=== PATIENT | female | born 1945 | race Caucasian/White ===

== ENCOUNTER 2016-03-26 10:18 | Outpatient (CLI) | payer OTHER ==
[2015-12-04 23:05] VITALS: BMI 43.8
--- NOTE | 2016-03-26 13:25 | US ---
EXAM: Bilateral lower extremity venous Doppler HISTORY: Bilateral leg pain TECHNIQUE: Real time duplex ultrasound is performed on the common femoral, greater saphenous, profu nda femoris, superficial femoral, popliteal, peroneal, anterior tibial, and posterior tibial veins. COMPARISON: None FINDINGS: The veins are free of intraluminal filling defects. The veins are compressible and show increased flow with augmentation. Normal variability with respiration is noted. Of note, the poste rior and anterior tibial veins are not visualized which may be due to the patient's body habitus. A right Villeda's cyst is detected measuring 4.1 x 1.3 x 1.8 cm. No left Villeda's cyst is appreciated. IMPRESSION: No evidence of deep or superficial vein thrombosis. Note, posterior and anterior tibial veins are not visualized which is thought to be related to the p atient's body habitus. Right Villeda's cyst.
== END 2016-03-26 10:19 | disposition home or self-care (01) ==
LOC: RAD 10:18
PROVIDERS: ATTEND Emergency Medicine
DX: M79.605 Pain in left leg (principal); M79.604 Pain in right leg; I35.0 Nonrheumatic aortic (valve) stenosis

== ENCOUNTER 2016-03-30 06:25 | Outpatient (CLI) ==
[2015-12-04 23:05] VITALS: BMI 43.8
[2016-03-30] MEDS ORDERED: DOBUTAMINE 250 ML IV ONE (07:00)
[2016-03-30] MEDS ORDERED: ATROPINE SULFATE PFS ONE (07:00)
--- NOTE | 2016-04-01 09:15 | DOBSTECHO ---
Ordering Physician: ALYSSA KHANNA Date of Test: 03/30/16 Reason for Examination: SURGICAL CLEARANCE, AORTIC STENOSIS Cardiac History: PACEMAKER/DEFIB Height: 60" Weight: 236 LBS Height: 60" Weight: 236 LBS Target Heart Rate: 126/149 ST Segment Stage Time HR BPM BP mmhg Rhythm +/- Up Down Comments/Symptoms Control Sitting HR 96/66 SR X NONE Dobutamine 250mg/D5W 5cmg/KG/mn 10cmg/KG/mn 3" 68 102/60 SR X NONE 15cmg/KG/mn 2" 68 X NONE 20cmg/KG/mn 2" 73 X NONE 25cmg/KG/mn 2" 73 96/56 X NONE 30cmg/KG/mn 2" 80 98/58 X .25 ATROPINE 35cmg/KG/mn 2" 90 X NONE 40cmg/KG/mn :23 91 Time: 3 HR B/P Time: 6 HR B/P Time: 8 HR B/P Recovery 83 96/70 Recovery 77 Recovery 72 Total Time: 13:23 Maximum Heart Rate Reached: 91 Interpretation: 1. DOBUTAMINE STRESS POSITIVE FOR ISCHEMIC ST-T WAVE CHANGES (BORDERLINE) 2. NO CHEST PAIN OR CHEST DISCOMFORT 3. LEFT VENTRICULAR CONTRACTILITY--NORMAL RESTING AND WITH DOBUTAMINE INFUSION MTDD
--- NOTE | 2016-04-01 09:30 | ECHOSTRESS ---
Date of Exam: 03/30/16 Ordering Physician: ALYSSA KHANNA Reason for Echo: AORTIC STENOSIS, SURGICAL CLEARANCE, DOBUTAMINE STRESS-- POSITIVE FOR ISCHEMIA M-Mode Normal Adult Results LV Dimensions Normal Adult Results AoV Opening excursions >1.6 LVEDD-base- 3.5-5.8 Ao root dimensions 2.0-3.7 LVESD-base- 3.1-4.6 L. Atrium dimensions 1.9-3.8 Post. Wall thickness 0.8-1.1 IV septum (thickness) 0.7-1.2 Post. Wall excursion 0.72-1.3 Septal motion Systolic motion R. Ventricular cavity 1.5-2.0 LVEF 60% Paradoxical septal wall motion 2-D: NORMAL LEFT VENTRICULAR CONTRACTILITY--RESTING AND WITH DOBUTAMINE INFUSION M-MODE: MV: AV: TV: PV: CHAMBER SIZE: WALL MOTION: NORMAL LEFT VENTRICULAR CONTRACTILITY--RESTING AND WITH DOBUTAMINE INFUSION PERICARDIUM: INTERPRETATION: 1. NORMAL LEFT VENTRICULAR CONTRACTILITY--RESTING AND WITH DOBUTAMINE INFUSION MTDD
--- NOTE | 2016-04-01 11:11 | ECHO2D ---
Date of Exam: 03/30/16 Ordering Physician: ALYSSA CHEN Reason for Echo: AORTIC STENOSIS, SURGICAL CLEARANCE Auscultation: S1, S2 Murmurs: MURMUR M-Mode Normal Adult Results LV Dimensions Normal Adult Results AoV Opening excursions >1.6 1.1 LVEDD-base- 3.5-5.8 5.1 Ao root dimensions 2.0-3.7 3.3 LVESD-base- 3.1-4.6 L. Atrium dimensions 1.9-3.8 4.7 Post. Wall thickness 0.8-1.1 1.1 IV septum (thickness) 0.7-1.2 1.2 Post. Wall excursion 0.72-1.3 NORMAL Septal motion NORMAL Systolic motion R. Ventricular cavity 1.5-2.0 3.0 LVEF 60% 50% Paradoxical septal wall motion NORMAL 2-D : CALCIFIC AORTIC STENOSIS--NORMAL LEFT VENTRICULAR CONTRACTILITY--ENLARGED RIGHT VENTRICLE AND LEFT ATRIAL CAVITIES, NO EFFUSION, NO THROMBUS M-MODE: MV: CALCIFIC ANNULUS AV: CALCIFIC AORTIC STENOSIS--1.0CM2 PLANIMETRY TV: NORMAL PV: NORMAL CHAMBER SIZE: ENLARGED LEFT ATRIAL AND RIGHT VENTRICLE CAVITIES WALL MOTION: NORMAL PERICARDIUM: NORMAL INTERPRETATION: 1. LEFT VENTRICULAR HYPERTROPHY BORDERLINE WITH ENLARGED LEFT ATRIAL CAVITY 2. ENLARGED RIGHT VENTRICLE CAVITY 3. NORMAL LEFT VENTRICLE CONTRACTILITY 4. CALCIFIC AORTIC STENOSIS 1.0 CM2 PLANIMETRY RECOMMEND: COMPLETE ECHO WITH COLOR FLOW DOPPLER MTDD
== END 2016-03-30 06:26 | disposition home or self-care (01) ==
LOC: CAR 06:25
PROVIDERS: ATTEND Emergency Medicine
DX: Z01.810 Encounter for preprocedural cardiovascular examination (principal); I35.0 Nonrheumatic aortic (valve) stenosis; I10 Essential (primary) hypertension; E11.9 Type 2 diabetes mellitus without complications

== ENCOUNTER 2016-04-23 14:47 | Emergency (ER) ==
[2016-04-23 14:53] VITALS: BP 114/66; TEMP 98.8; BMI 45.8
[2016-04-23] MEDS ORDERED: LIDOCAINE 1 % AMP 5 ML (SUTURES) SUBCUT STA (15:05)
--- NOTE | 2016-04-23 15:44 | ED.PDOC ---
General ED Provider: Dr. JEANIE OSEI Chief Complaint: Fall Stated Complaint: fall left knee injury Time Seen by Physician: 15:00 Mode of Arrival: Walk-In Information Source: Patient Exam Limitations: No limitations Primary Care Provider: ALYSSA KHANNA Nursing and Triage Documentation Reviewed and Agree: Yes Trauma/Injury Complaint Exam - Trauma Complaint/Exam Location of Pain or Injury: Reports: LLE (knee fell over a cat see photos before and after) Symptoms Are: Still present Initial Severity: Moderate Current Severity: Moderate Character: Reports: Aching Aggravating: Reports: None Associated Signs and Symptoms: Denies: LOC, Confusion, Memory loss, Lethargy, Vomiting, Bleeding, Bruising, Swelling, Extremity disuse, Painful respiration, Hoarseness, Dysphagia, Hemoptysis, Significant blood loss Related History: Reports: Similar episode Nexus Low Risk Criteria: No post-midline CS tender, No evidence of intoxicat., No Altered LOC, No focal neuro deficit, No distracting injuries Glascow Coma Scale (see protocol): 15 Review of Systems - Review Of Systems Constitutional: Reports: No symptoms Eyes: Reports: No symptoms Ears, Nose, Mouth, Throat: Reports: No symptoms Respiratory: Reports: No symptoms Cardiac: Reports: No symptoms GI: Reports: No symptoms : Reports: No symptoms Musculoskeletal: Reports: Joint pain (left knee pain) Skin: Reports: No symptoms Neurological: Reports: No symptoms Endocrine: Reports: No symptoms Hematologic/Lymphatic: Reports: No symptoms All Other Systems: Reviewed and Negative Past Medical History - Past Medical History Endocrine: Reports: DM 2 Cardiovascular: Reports: CAD, Hypertension Respiratory: Reports: None Hematological: Reports: None Gastrointestinal: Reports: None Genitourinary: Reports: None Neuro/Psych: Reports: None Musculoskeletal: Reports: None Cancer: Reports: None Last Menstrual Period: NA - Surgical History General Surgical History: Reports: Pacemaker (defib) - Family History Family History: Reports: None - Social History Smoking Status: Former smoker Hx Substance Use: No Alcohol Screening: None - Immunizations Tetanus Shot up to Date: No Physical Exam - Physical Exam Appearance: Well-appearing, No pain distress, Well-nourished Eyes: KALIA, EOMI, Conjunctiva clear ENT: Ears normal, Nose normal, Oropharynx normal Respiratory: Airway patent, Breath sounds clear, Breath sounds equal, Respirations nonlabored Cardiovascular: RRR, Pulses normal, No rub, No murmur GI/: Soft, Nontender, No masses, Bowel sounds normal, No Organomegaly Musculoskeletal: Limited ROM (left knee 2 cm laceration with glass FL/B ) Skin: Warm, Dry, Normal color Neurological: Sensation intact, Motor intact, Reflexes intact, Cranial nerves intact, Alert, Oriented Psychiatric: Affect appropriate, Mood appropriate Procedures - Laceration/Wound Repair No standard instances Wound Description: Stellate Wound Length (cm): 3CM Wound Width: 1CM Wound Depth: 0.4CM Wound Explored: Contaminated (WITH GLASS) Wound Irrigated: No Wound Prep: Saline Anesthesia: Lidocaine Wound Debrided: Minimal Undermining: Minimal Wound Margins: Revised Wound Repaired With: [place] Number of Oma: 17 Layer Closure?: No Critical Care Note - Critical Care Note Total Time (mins): 0 Course - Course Orders, Labs, Meds: Orders Category Date Time Status Lidocaine HCl/Pf [Lidocaine 1 % Amp 5 ml (Sutures)] MEDS 04/23/16 15:05 Discontinued 5 ml SUBCUT ONCE STA Medications Discontinued Medications Generic Name Dose Route Start Last Admin Trade Name Heri PRN Reason Stop Dose Admin Lidocaine HCl 5 ml 04/23/16 15:05 04/23/16 15:12 Lidocaine 1 % Amp 5 Ml (Sutures) SUBCUT 04/23/16 15:06 5 ml ONCE STA Administration Vital Signs: Temp Pulse Resp BP Pulse Ox 04/23/16 14:49 98.8 F 76 20 114/66 95 Departure - Departure Time of Disposition: 15:46 Disposition: HOME SELF-CARE Discharge Problem: Laceration Instructions: Laceration (ED), Staple Care (ED) Condition: Good Pt referred to PMD for follow-up: No Additional Instructions: Please call your Family Physician as soon as possible to schedule a follow-up appointment. Allergies/Adverse Reactions: Allergies aspirin Adverse Reaction (Verified 04/23/16 14:48) uncoated aspirin donaldson stomach prednisone Adverse Reaction (Verified 04/23/16 14:48) Chest Tightness zolpidem tartrate [From Ambien] Adverse Reaction (Verified 04/23/16 14:48) Home Medications: Ambulatory Orders Amitriptyline HCl 50 mg PO BEDTIME 08/11/14 Darifenacin Hydrobromide [Enablex] 15 mg PO DAILY 08/11/14 Rosuvastatin Calcium [Crestor] 20 mg PO BEDTIME 08/11/14 Spironolactone 12.5 mg PO DAILY 08/11/14 Budesonide/Formoterol Fumarate [Symbicort 160-4.5 Mcg Inhaler] 2 puff IH BID Lisinopril [Zestril] 2.5 mg PO DAILY 10/22/15 Oxycodone-Acetaminophe 7.5-325 [Percocet 7.5-325] 1 tab PO TID PRN 10/22/15 Tizanidine HCl 2 mg PO BID 10/22/15 Amiodarone HCl 150 mg PO DAILY #30 tablet 10/24/15 Furosemide [Lasix Tab] 20 mg PO QDAC #1 tablet 10/24/15
--- NOTE | 2016-04-23 16:16 | DI ---
EXAM: Left knee four views HISTORY: Injury COMPARISON: 12/04/2015 TECHNIQUE: Four views left knee were performed FINDINGS: There are skin lemuel. No fracture or dislocation. There are tricompartmental osteophyte s. There is moderate to severe narrowing medial compartment. There is mild narrowing patellofemora l compartment. There are several well marginated ossification about the posterior in the likely loo se body formation. There is atherosclerotic vascular calcification. IMPRESSION: 1. No fracture or dislocation. 2. 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 Loose body formation.
== END 2016-04-23 16:47 | disposition home or self-care (01) ==
LOC: ED 14:47
DX: S81.022A Laceration with foreign body, left knee, initial encounter (principal); M25.562 Pain in left knee; W01.0XXA Fall on same level from slipping, tripping and stumbling without subsequent striking against object, initial encounter
CPT/HCPCS: 99283

== ENCOUNTER 2016-05-12 17:29 | Emergency (ER) ==
[2016-05-12 17:41] VITALS: BP 113/64; TEMP 97.1; BMI 46.6
--- NOTE | 2016-05-12 17:42 | ED.PDOC ---
General ED Provider: Dr. TARA HOLLOWAY JR Chief Complaint: Wound Check Stated Complaint: 15 lemuel to laceration left knee note central to stellate lesion small amount of exudate, erythema at margins Time Seen by Physician: 17:42 Mode of Arrival: Wheelchair Information Source: Patient Exam Limitations: No limitations Primary Care Provider: ALYSSA KHANNA Nursing and Triage Documentation Reviewed and Agree: No Review of Systems - Review Of Systems Constitutional: Reports: No symptoms Eyes: Reports: No symptoms Ears, Nose, Mouth, Throat: Reports: No symptoms Respiratory: Reports: No symptoms Cardiac: Reports: No symptoms GI: Reports: No symptoms : Reports: No symptoms Musculoskeletal: Reports: No symptoms Skin: Reports: Change in color, Lesions Neurological: Reports: No symptoms Endocrine: Reports: No symptoms Hematologic/Lymphatic: Reports: No symptoms All Other Systems: Other Past Medical History - Past Medical History Endocrine: Reports: DM 2 Cardiovascular: Reports: CAD, Hypertension Respiratory: Reports: None Hematological: Reports: None Gastrointestinal: Reports: None Genitourinary: Reports: None Neuro/Psych: Reports: None Musculoskeletal: Reports: None Cancer: Reports: None Last Menstrual Period: unknown - Surgical History General Surgical History: Reports: Pacemaker (defib) - Family History Family History: Reports: None - Social History Smoking Status: Former smoker Hx Substance Use: No Alcohol Screening: None - Immunizations Tetanus Shot up to Date: (unknown) Physical Exam - Physical Exam Appearance: Well-appearing, Obese Pain Distress: Mild Neck: Supple Respiratory: Airway patent Skin: Warm, Dry, Normal color (note lesion) Procedures - Foreign Body Removal Location of Foreign Object: left knee lemuel Foreign Object: removed lemuel times 15 after removal, all areas clean and dry with erythe Depth of Object: superficial- appearance of healing wounds Type of Anesthesia: None Prep: Hibiclens Irrigation: Yes Skin Incised: No Instruments Used: Yes: Other (staple remover) Critical Care Note - Critical Care Note Total Time (mins): 0 Course - Course Orders, Labs, Meds: Orders Category Date Time Status CULTURE WOUND [WOUND CULTURE] Stat LAB 05/12/16 17:50 Received Vital Signs: Temp Pulse Resp BP Pulse Ox 05/12/16 17:31 97.1 F L 76 20 113/64 95 Departure - Departure Time of Disposition: 18:13 Disposition: HOME SELF-CARE Discharge Problem: Wound Instructions: Laceration (ED) Condition: Good Pt referred to PMD for follow-up: Yes Additional Instructions: may place clean bandage daily cleanse with antibacterial soap if any drainage if increased drainage recheck PMD Allergies/Adverse Reactions: Allergies aspirin Adverse Reaction (Verified 05/12/16 17:41) uncoated aspirin donaldson stomach prednisone Adverse Reaction (Verified 05/12/16 17:41) Chest Tightness zolpidem tartrate [From Ambien] Adverse Reaction (Verified 05/12/16 17:41) Home Medications: Ambulatory Orders Amitriptyline HCl 50 mg PO BEDTIME 08/11/14 Darifenacin Hydrobromide [Enablex] 15 mg PO DAILY 08/11/14 Rosuvastatin Calcium [Crestor] 20 mg PO BEDTIME 08/11/14 Spironolactone 12.5 mg PO DAILY 08/11/14 Budesonide/Formoterol Fumarate [Symbicort 160-4.5 Mcg Inhaler] 2 puff IH BID Lisinopril [Zestril] 2.5 mg PO DAILY 10/22/15 Oxycodone-Acetaminophe 7.5-325 [Percocet 7.5-325] 1 tab PO TID PRN 10/22/15 Tizanidine HCl 2 mg PO BID 10/22/15 Amiodarone HCl 150 mg PO DAILY #30 tablet 10/24/15 Furosemide [Lasix Tab] 20 mg PO QDAC #1 tablet 10/24/15
== END 2016-05-12 18:30 | disposition home or self-care (01) ==
LOC: ED 17:29
DX: S81.012D Laceration without foreign body, left knee, subsequent encounter (principal); Z48.02 Encounter for removal of sutures
CPT/HCPCS: 87070; 99283

== ENCOUNTER 2016-09-03 14:18 | Outpatient (CLI) ==
[2016-09-03 14:45] VITALS: BMI 46.0
== END 2016-09-03 14:19 | disposition critical access hospital (66) ==
LOC: AMBL 14:18
PROVIDERS: ATTEND Emergency Medicine
DX: S01.91XA Laceration without foreign body of unspecified part of head, initial encounter (principal); W07.XXXA Fall from chair, initial encounter

== ENCOUNTER 2016-09-03 14:29 | Emergency (ER) ==
--- NOTE | 2016-09-03 14:32 | ED.PDOC ---
General ED Provider: Dr. 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 FALLING MORE IN LAST 4 MONTHS.[ End ]20 min ago 97.8 85 16 94% 117/64 6/10 NO. GETS PERCOCET REFILL TOMORROW HEAD INJURY WITH LACERATION FROM FALL[ End ]2cm lac left occiput Time Seen by Physician: 14:32 Mode of Arrival: Ambulance Information Source: Patient, EMT Exam Limitations: No limitations Primary Care Provider: ALYSSA KHANNA Nursing and Triage Documentation Reviewed and Agree: No Review of Systems - Review Of Systems Constitutional: Reports: Weakness Eyes: Reports: No symptoms Ears, Nose, Mouth, Throat: Reports: No symptoms Respiratory: Reports: No symptoms Cardiac: Reports: No symptoms GI: Reports: No symptoms : Reports: No symptoms Musculoskeletal: Reports: No symptoms Skin: Reports: Lesions (left occiput) Neurological: Reports: No symptoms, Weakness Endocrine: Reports: No symptoms Hematologic/Lymphatic: Reports: No symptoms All Other Systems: Other Past Medical History - Past Medical History Endocrine: Reports: DM 2, Dyslipidemia Cardiovascular: Reports: CAD, Hypertension Respiratory: Reports: COPD Hematological: Reports: None Gastrointestinal: Reports: None Genitourinary: Reports: None Neuro/Psych: Reports: None Musculoskeletal: Reports: None Cancer: Reports: None - Surgical History General Surgical History: Reports: Pacemaker (defib-PACEMAKER/DEFIB 2014,), Orthopedic ( RIGHT HIP REPLACED 2005) - Family History Family History: Reports: None - Social History Smoking Status: Former smoker Hx Substance Use: No Alcohol Screening: None Physical Exam - Physical Exam Appearance: Well-appearing Ill-appearing: Mild Pain Distress: Mild Eyes: KALIA, EOMI, Conjunctiva clear ENT: Ears normal, Nose normal, Oropharynx normal Neck: Supple Respiratory: Airway patent, Breath sounds clear, Breath sounds equal, Respirations nonlabored Cardiovascular: RRR, Pulses normal, No rub, No murmur GI/: Soft, Nontender, No masses, Bowel sounds normal, No Organomegaly Musculoskeletal: Normal strength, ROM intact, No edema, No calf tenderness Skin: Warm, Dry, Normal color (note lac) Neurological: Sensation intact, Motor intact, Reflexes intact, Cranial nerves intact, Alert, Oriented Psychiatric: Affect appropriate, Mood appropriate Critical Care Note - Critical Care Note Total Time (mins): 20 Course - Course Hematology/Chemistry: 09/03/16 14:43 Orders, Labs, Meds: Lab Review 09/03/16 14:43 WBC 7.43 RBC 3.61 L Hgb 10.6 L Hct 32.6 L MCV 90.3 MCH 29.4 MCHC 32.5 RDW Coeff of Chantel 14.7 Plt Count 262 Immature Gran % (Auto) 0.7 Neut % (Auto) 78.6 Lymph % (Auto) 12.4 [place] % (Auto) 5.7 Eos % (Auto) 2.2 Baso % (Auto) 0.4 Immature Gran # (Auto) 0.1 Neut # 5.9 Lymph # 0.9 [place] # 0.4 Eos # 0.2 Baso # 0.0 Orders Category Date Time Status Wound care [ED WOUND CARE] .ONCE EMERGENCY 09/03/16 16:05 Active CBC W/ AUTO DIFF Stat LAB 09/03/16 14:[address] HEAD W/O CONTRAST Stat RADS 09/03/16 14:31 Completed Vital Signs: Temp Pulse Resp BP Pulse Ox 09/03/16 14:37 97.8 F 85 16 117/64 94 L Departure - Departure Time of Disposition: 16:32 Disposition: HOME SELF-CARE Discharge Problem: Laceration Head injury due to trauma Qualifiers: Encounter type: initial encounter Qualifier Code: (S09.90XA) Unspecified injury of head, initial encounter Instructions: Head Injury (ED), Laceration Without Closure (ED) Condition: Good Pt referred to PMD for follow-up: Yes Additional Instructions: Please follow-up with Dr. Khanna in 1-3 days. dily bandage change and if bleeds through if bleeds though three times return someone should check hourly while awake return if headache mental changes or nausea recommend obtaining alert system for falls recommend placing balance rails(or handicap rails) in home especially kitchen Allergies/Adverse Reactions: Allergies aspirin Adverse Reaction (Verified 09/03/16 14:31) uncoated aspirin donaldson stomach prednisone Adverse Reaction (Verified 09/03/16 14:31) Chest Tightness zolpidem tartrate [From Ambien] Adverse Reaction (Verified 09/03/16 14:31) Home Medications: Ambulatory Orders Amitriptyline HCl 100 mg PO BEDTIME 08/11/14 Budesonide/Formoterol Fumarate [Symbicort 160-4.5 Mcg Inhaler] 2 puff IH BID Lisinopril [Zestril] 2.5 mg PO DAILY 10/22/15 Oxycodone-Acetaminophe 7.5-325 [Percocet 7.5-325] 1 tab PO TID PRN 10/22/15 Tizanidine HCl 2 mg PO BID 10/22/15 Amiodarone HCl 150 mg PO DAILY #30 tablet 10/24/15
[2016-09-03 14:45] VITALS: BP 117/64; TEMP 97.8; BMI 46.0
[2016-09-03 14:58] LABS: BASOPHILS % (AUTO) 0.4 % (0.0-3.0); EOSINOPHILS # (AUTO) 0.2 K/ul (0.0-0.7); EOSINOPHILS % (AUTO) 2.2 % (0.0-7.0); HEMATOCRIT 32.6 % (37.0-47.0); HEMOGLOBIN 10.6 g/dl (12.0-16.0); IMMATURE GRANULOCYTE % (AUTO) 0.7 % (0.0-5.0); LYMPHOCYTES # (AUTO) 0.9 K/uL (0.60-3.4); LYMPHOCYTES % (AUTO) 12.4 (10.0-50.0); MEAN CORPUSCULAR HEMOGLOBIN 29.4 pg (27.0-31.0); MEAN CORPUSCULAR HGB CONC 32.5 (31.8-35.4); MEAN CORPUSCULAR VOLUME 90.3 fl (81.0-99.0); MONOCYTES # (AUTO) 0.4 K/uL (0.4-2.0); MONOCYTES % (AUTO) 5.7 (0-10); NEUTROPHILS # (AUTO) 5.9 K/ul (2.0-6.9); NEUTROPHILS % (AUTO) 78.6; PLATELET COUNT 262 10^3/uL (140-440); RED BLOOD COUNT 3.61 10^6/ul (4.20-5.40); WHITE BLOOD COUNT 7.43 K/ul (4.6-10.2)
--- NOTE | 2016-09-03 16:20 | CT ---
EXAM: CT head without contrast. HISTORY: Initial presentation for head trauma due to fall. Left parietal trauma. COMPARISON: 05/29/2012. TECHNIQUE: Multiple axial images of the brain were obtained from the skull base through the vertex without intravenous contrast. FINDINGS: There is no intracranial hemorrhage or extraaxial collection. The enrique-white differentia tion is maintained without evidence for acute large vascular territory infarction. There are areas of periventricular and subcortical white matter low attenuation. The cortical sulci and cerebral ve ntricles are symmetrically enlarged. The basal cisterns are well visualized. There is no hydroceph alus, mass effect, or midline shift. The paranasal sinuses and mastoid air cells are clear. The ca lvarium is intact. Atherosclerotic calcifications are present. IMPRESSION: 1. No acute intracranial abnormality. 2. Chronic small vessel ischemic changes and atrophy.
== END 2016-09-03 17:05 | disposition home or self-care (01) ==
LOC: ED 14:29
DX: S01.01XA Laceration without foreign body of scalp, initial encounter (principal); S09.90XA Unspecified injury of head, initial encounter; R53.1 Weakness; R29.6 Repeated falls; W18.30XA Fall on same level, unspecified, initial encounter; E11.9 Type 2 diabetes mellitus without complications; E78.5 Hyperlipidemia, unspecified; I10 Essential (primary) hypertension; Z95.0 Presence of cardiac pacemaker
CPT/HCPCS: 36415; 85025; 99283

== ENCOUNTER 2017-04-04 16:49 | Outpatient (CLI) | END 2017-04-04 16:50 | disposition home or self-care (01) | LOC: LAB 16:49 | PROVIDERS: ATTEND Emergency Medicine | DX: E78.5 Hyperlipidemia, unspecified (principal); I50.22 Chronic systolic (congestive) heart failure; D50.0 Iron deficiency anemia secondary to blood loss (chronic); N18.3 Chronic kidney disease, stage 3 (moderate) | CPT/HCPCS: 36415; 80053; 80061; 82306; 82607; 84443; 85025 ==

== ENCOUNTER 2018-02-26 15:22 | Inpatient (IN) ==
[2018-02-26] MEDS ORDERED: SODIUM CHLORIDE 1,000 ML IV STA (16:03)
--- NOTE | 2018-02-26 16:13 | ED.PDOC ---
General ED Provider: Dr. MINGO LAY Chief Complaint: Respiratory Complaint Stated Complaint: SOB. retirement reports patient with increasing dyspnea and SOA last few days with O2 sat decreased in to low 90s. Hx CHF, COPD. O2 sats in 70's on O2 per NH. Loose cough. Nail beds dusky. Toes cyanotic. Hx recent CVA, rt side weakness. BP low on ER arrival, 78/55. O2 sat 99 after neb Tx per EMS. Time Seen by Physician: 15:45 Mode of Arrival: Stretcher Information Source: [facility], EMT Primary Care Provider: ALYSSA VELASQUEZ Nursing and Triage Documentation Reviewed and Agree: Yes Does patient meet sepsis criteria?: No System Inflammatory Response Syndrome: Not Applicable Sepsis Protocol: For patient's 13 years and over: Temp is 96.8 and below OR 101 and greater Pulse >90 BPM Resp >20/minute Acutely Altered Mental Status Are patient's symptoms suggestive of a new infection, such as: -Pneumonia -Skin, Soft Tissue -Endocarditis -UTI -Bone, Joint Infection -Implantable Device -Acute Abdominal Infection -Wound Infection -Meningitis -Blood Stream Catheter Infection -Unknown Respiratory Complaint Exam - Shortness of Air Complaint/Exam Onset/Duration: 48 hrs Symptoms Are: Still present Timing: Constant Initial Severity: Severe Current Severity: Moderate Character: Reports: Dyspnea at rest Aggravating: Reports: Recumbent position, URI Alleviating: Reports: Bronchodilators, Oxygen, Upright position Related History: Reports: Similar episode History of Healthcare-Acquired Pneumonia: No, [facility] Pulmonary Embolism Risk Factors: Reports: None Pseudomonas Risk Factors: Reports: None Review of Systems - Review Of Systems Constitutional: Reports: Weakness Eyes: Reports: No symptoms Ears, Nose, Mouth, Throat: Reports: No symptoms Respiratory: Reports: Cough, Orthopnea, Short of air, Wheezing Cardiac: Reports: No symptoms GI: Reports: No symptoms : Reports: No symptoms Musculoskeletal: Reports: No symptoms Skin: Reports: No symptoms Neurological: Reports: Cognitive dysfunction, Unable to move lower ext (Rt) Endocrine: Reports: No symptoms Hematologic/Lymphatic: Reports: No symptoms All Other Systems: Reviewed and Negative Past Medical History - Past Medical History Endocrine: Reports: DM 2, Dyslipidemia Cardiovascular: Reports: CAD, Hypertension Respiratory: Reports: COPD Hematological: Reports: None Gastrointestinal: Reports: None Genitourinary: Reports: None Neuro/Psych: Reports: CVA, Other Musculoskeletal: Reports: None Cancer: Reports: None Last Menstrual Period: unknown - Surgical History General Surgical History: Reports: Pacemaker (defib-PACEMAKER/DEFIB 2014,), Orthopedic ( RIGHT HIP REPLACED 2005) - Family History Family History: Reports: None - Social History Smoking Status: Former smoker Hx Substance Use: No Alcohol Screening: None Physical Exam - Physical Exam Appearance: Ill-appearing, Obese Ill-appearing: Moderate Pain Distress: None Eyes: KALIA, EOMI, Conjunctiva clear ENT: Ears normal, Nose normal, Oropharynx normal Neck: Supple Respiratory: Breath sounds diminished, Crackles, Wheezes Cardiovascular: RRR GI/: Soft, No masses, Bowel sounds normal, No Organomegaly, Tender (no guarding) Musculoskeletal: Normal strength (but weak rt side) Skin: Warm, Dry Neurological: Sensation intact, Alert, Disoriented, Focal Deficit (Rt Hemiparesis plegic) Interpretation - Radiology Interpretation Radiology Results: Positive (CHF/Pleural effussion) Exam Interpreted: Portable CXR Re-Evaluation - Re-Evaluation Time of Re-Evaluation: 18:40 Status: Improved Vital Signs Stable: Yes Appearance: NAD Lungs: Clear Skin: Warm and Dry CV: RRR Additional Comments: agrees to admisson Physician Notification - Case Discussed Physician Notified: Dr Velasquez Time of Notification: 19:15 (agrees to admit) Critical Care Note - Critical Care Note Total Time (mins): 60 Course - Course Hematology/Chemistry: 02/26/18 16:23 02/26/18 16:23 Orders, Labs, Meds: Lab Review 02/26/18 02/26/18 02/26/18 16:04 16:10 16:23 WBC 5.01 RBC 4.07 L Hgb 11.1 L Hct 36.4 L MCV 89.4 MCH 27.3 MCHC 30.5 L RDW Coeff of Chantel 23.0 H Plt Count 256 Immature Gran % (Auto) 0.4 Neut % (Auto) 76.4 Lymph % (Auto) 12.6 [place] % (Auto) 6.6 Eos % (Auto) 3.6 Baso % (Auto) 0.4 Immature Gran # (Auto) 0.0 Neut # (Auto) 3.8 Lymph # (Auto) 0.6 [place] # (Auto) 0.3 L Eos # (Auto) 0.2 Baso # (Auto) 0.0 Plt Morphology Comment Normal Anisocytosis 1+ ESR 12 PT INR APTT Puncture Site Lr O2 Saturation 98.0 ABG pH 7.42 ABG pCO2 37.3 ABG pO2 105.0 H ABG HCO3 24.2 ABG Total CO2 25 ABG Base Excess 0 Eliel Test + O2 Delivery Device Nc Oxygen Liter Flow 2.00 Sodium Potassium Chloride Carbon Dioxide Anion Gap BUN Creatinine Estimated GFR (MDRD) BUN/Creatinine Ratio Glucose Lactic Acid Uric Acid Calcium Magnesium Total Bilirubin AST ALT Alkaline Phosphatase Troponin I Total Protein Albumin Globulin Albumin/Globulin Ratio Procalcitonin Urine Color Yellow Urine Clarity Cloudy Urine pH 5.0 Ur Specific [place] 1.020 Urine Protein Negative Urine Glucose (UA) Negative Urine Ketones Negative Urine Blood 2+ Urine Nitrite Negative Urine Bilirubin Negative Urine Urobilinogen 4.0 Ur Leukocyte Esterase 2+ Urine Microscopic RBC 0-2 Urine Microscopic WBC 2-5 Ur Squamous Epith Cells 5-10 Urine Bacteria 3+ Urine Yeast 2+ Influ A Molecular Assay Influ B Molecular Assay 02/26/18 02/26/18 02/26/18 16:23 16:23 16:23 WBC RBC Hgb Hct MCV MCH MCHC RDW Coeff of Chantel Plt Count Immature Gran % (Auto) Neut % (Auto) Lymph % (Auto) [place] % (Auto) Eos % (Auto) Baso % (Auto) Immature Gran # (Auto) Neut # (Auto) Lymph # (Auto) [place] # (Auto) Eos # (Auto) Baso # (Auto) Plt Morphology Comment Anisocytosis ESR PT INR APTT Puncture Site O2 Saturation ABG pH ABG pCO2 ABG pO2 ABG HCO3 ABG Total CO2 ABG Base Excess Eliel Test O2 Delivery Device Oxygen Liter Flow Sodium 136.5 Potassium 3.52 Chloride 101.9 Carbon Dioxide 29.2 Anion Gap 8.92 BUN 22.5 H Creatinine 0.97 Estimated GFR (MDRD) 56.00 BUN/Creatinine Ratio 23.19 Glucose 161.7 H Lactic Acid 1.69 Uric Acid 10.65 H Calcium 8.04 L Magnesium 1.82 Total Bilirubin 1.74 H AST 20.6 ALT 16.7 Alkaline Phosphatase 50.7 L Troponin I 0.108 Total Protein 5.71 L Albumin 3.01 L Globulin 2.70 Albumin/Globulin Ratio 1.11 Procalcitonin 0.06 Urine Color Urine Clarity Urine pH Ur Specific [place] Urine Protein Urine Glucose (UA) Urine Ketones Urine Blood Urine Nitrite Urine Bilirubin Urine Urobilinogen Ur Leukocyte Esterase Urine Microscopic RBC Urine Microscopic WBC Ur Squamous Epith Cells Urine Bacteria Urine Yeast Influ A Molecular Assay Influ B Molecular Assay 02/26/18 02/26/18 16:23 16:45 WBC RBC Hgb Hct MCV MCH MCHC RDW Coeff of Chantel Plt Count Immature Gran % (Auto) Neut % (Auto) Lymph % (Auto) [place] % (Auto) Eos % (Auto) Baso % (Auto) Immature Gran # (Auto) Neut # (Auto) Lymph # (Auto) [place] # (Auto) Eos # (Auto) Baso # (Auto) Plt Morphology Comment Anisocytosis ESR PT 12.9 H INR 1.30 APTT 24.1 Puncture Site O2 Saturation ABG pH ABG pCO2 ABG pO2 ABG HCO3 ABG Total CO2 ABG Base Excess Eliel Test O2 Delivery Device Oxygen Liter Flow Sodium Potassium Chloride Carbon Dioxide Anion Gap BUN Creatinine Estimated GFR (MDRD) BUN/Creatinine Ratio Glucose Lactic Acid Uric Acid Calcium Magnesium Total Bilirubin AST ALT Alkaline Phosphatase Troponin I Total Protein Albumin Globulin Albumin/Globulin Ratio Procalcitonin Urine Color Urine Clarity Urine pH Ur Specific [place] Urine Protein Urine Glucose (UA) Urine Ketones Urine Blood Urine Nitrite Urine Bilirubin Urine Urobilinogen Ur Leukocyte Esterase Urine Microscopic RBC Urine Microscopic WBC Ur Squamous Epith Cells Urine Bacteria Urine Yeast Influ A Molecular Assay Negative by naat Influ B Molecular Assay Negative by naat Orders Category Date Time Status ABG DRAW REQUEST Stat CARDIO 02/26/18 16:04 Completed EKG-(ED ONLY) Stat CARDIO 02/26/18 16:03 Completed OXYGEN Routine CARDIO 02/26/18 16:04 Ordered IV [ED IV/MEDIPORT/POWERPORT] .ONCE EMERGENCY 02/26/18 16:03 Active ABG Stat LAB 02/26/18 16:04 Completed BLOOD CULTURE (ED ONLY) Stat LAB 02/26/18 16:23 Received CBC W/ AUTO DIFF Stat LAB 02/26/18 16:23 Completed CMP [COMPREHENSIVE METABOLIC PANEL] Stat LAB 02/26/18 16:23 Completed ESR Stat LAB 02/26/18 16:23 Completed FLU A & B MOLECULAR [FLU A/B MOLECULAR] Stat LAB 02/26/18 16:45 Completed LACTIC ACID Stat LAB 02/26/18 16:23 Completed MAGNESIUM Stat LAB 02/26/18 16:23 Completed PARTIAL THROMBOPLASTIN TIME Stat LAB 02/26/18 16:23 Completed PROCALCITONIN Stat LAB 02/26/18 16:23 Completed PT WITH INR Stat LAB 02/26/18 16:23 Completed RAPID STREP SCREEN [MOLECULAR GROUP A STREP] Stat LAB 02/26/18 16:45 Completed RBC MORPHOLOGY Stat LAB 02/26/18 16:23 Completed SPUTUM CULTURE Stat LAB 02/26/18 16:05 Uncollected TROPONIN I Stat LAB 02/26/18 16:23 Completed UA [URINALYSIS C & S IF INDICATED] Stat LAB 02/26/18 16:10 Completed URIC ACID Stat LAB 02/26/18 16:23 Completed URINE CULTURE Stat LAB 02/26/18 16:10 Received 0.9 % Sodium Chloride [Saline Flush] MEDS 02/26/18 16:03 Ordered 1 syr IVF PRN PRN Ceftriaxone Sodium [Rocephin] MEDS 02/26/18 18:25 Discontinued 1 gm .ROUTE .STK-MED ONE Ceftriaxone Sodium [Rocephin] 1 gm MEDS 02/26/18 17:58 Discontinued 0.9 % Sodium Chloride [Sodium Chloride] 50 ml IV ONCE Furosemide [Lasix] MEDS 02/26/18 18:00 Discontinued 20 mg IVP ONCE STA Sodium Chloride 0.9% [Sodium Chloride] 1,000 ml MEDS 02/26/18 16:03 Discontinued IV BOLUS CHEST, 1V AP ONLY Stat RADS 02/26/18 16:04 Completed Medications Generic Name Dose Route Start Last Admin Trade Name Freq PRN Reason Stop Dose Admin Sodium Chloride 1 syr 02/26/18 16:03 Saline Flush IVF PRN PRN To flush IV Discontinued Medications Generic Name Dose Route Start Last Admin Trade Name Freq PRN Reason Stop Dose Admin Furosemide 20 mg 02/26/18 18:00 02/26/18 18:34 Lasix IVP 02/26/18 18:01 20 mg ONCE STA Administration Sodium Chloride 1,000 mls @ 1,000 mls/hr 02/26/18 16:03 02/26/18 16:53 Sodium Chloride IV 02/26/18 17:02 1,000 mls/hr BOLUS STA Administration Ceftriaxone Sodium 1 gm/ 50 mls @ 75 mls/hr 02/26/18 17:58 02/26/18 18:37 Sodium Chloride IV 02/26/18 18:37 75 mls/hr ONCE STA Administration Vital Signs: Temp Pulse Resp BP Pulse Ox 02/26/18 15:23 97.5 F L 89 24 78/55 L 95 Departure - Departure Time of Disposition: 19:00 Disposition: ADMITTED INPATIENT Discharge Problem: CHF (congestive heart failure), UTI (urinary tract infection), Type II diabetes mellitus Condition: Fair Pt referred to PMD for follow-up: Yes (velasquez) IPMP verified?: No Allergies/Adverse Reactions: Allergies aspirin Adverse Reaction (Verified 02/26/18 15:56) uncoated aspirin donaldson stomach prednisone Adverse Reaction (Verified 02/26/18 15:56) Chest Tightness zolpidem tartrate [From Ambien] Adverse Reaction (Verified 02/26/18 15:56) Home Medications: Ambulatory Orders Budesonide/Formoterol Fumarate [Symbicort 160-4.5 Mcg Inhaler] 2 puff IH BID Bisacodyl [Dulcolax] 10 mg RC ONCE PRN 02/01/18 Docusate Sodium 100 mg PO BID 02/01/18 Furosemide [Lasix Tab] 20 mg PO BIDAC 02/01/18 Insulin Lispro [Humalog] 1 unit SUBCUT QID 02/01/18 Ipratropium/Albuterol Sulfate [Iprat-Albut 0.5-3(2.5) mg/3 ml] 3 ml IH Q4HR PRN 02/01/18 Potassium Chloride [Klor-Con M20] 20 meq PO DAILY 02/01/18 Carvedilol [Coreg] 3.125 mg PO BID #60 tablet 02/07/18 Amitriptyline HCl 100 mg PO BEDTIME 02/26/18 Clopidogrel Bisulfate [Plavix] 75 mg PO BEDTIME 02/26/18 Menthol/Zinc Oxide [Calmoseptine Ointment] 1 applic TP Q8HR PRN 02/26/18 Mupirocin [Bactroban] 1 applic TP BID 02/26/18 Oxycodone HCl/Acetaminophen [Oxycodon-Acetaminophen 7.5-325] 1 each PO BID 02/26 Disposition Discussed With: Patient, Family
--- NOTE | 2018-02-26 16:49 | DI ---
EXAMINATION: AP portable chest radiograph. HISTORY: Shortness of air FINDINGS: A left subclavian dual chamber automatic implantable cardiac defibrillator is unchanged sin ce 02/06/2018. The central pulmonary vessels remain prominent. A small right pleural effusion is ewing ggested. The aorta is atherosclerotic. The heart is enlarged. No pneumothorax. IMPRESSION: Probable congestive heart failure with pulmonary vascular congestion and small right pleural effusion . Cardiomegaly and automatic implantable cardiac defibrillator.
[2018-02-26] MEDS ORDERED: ROCEPHIN 1 GM in SODIUM CHLORIDE 50 ML IV STA (17:58)
[2018-02-26] MEDS ORDERED: LASIX IVP STA (18:00)
[2018-02-26] MEDS ORDERED: ROCEPHIN ONE (18:25)
[2018-02-26] MEDS ORDERED: DUONEB NEB PRN (19:18)
[2018-02-26] MEDS ORDERED: SODIUM CHLORIDE 1,000 ML IV SCH (19:30)
[2018-02-26] MEDS ORDERED: AMITRIPTYLINE HCL 100 MG PO SCH (21:00)
[2018-02-26] MEDS ORDERED: COREG PO SCH (21:00)
[2018-02-26 21:28] VITALS: BMI 42.0
[2018-02-26] MEDS ORDERED: ELAVIL PO ONE (21:31)
[2018-02-26] MEDS: PLAVIX PO SCH (21:51)
[2018-02-26] MEDS: COLACE PO SCH (21:52)
[2018-02-26] MEDS: SYMBICORT 160-4.5 MCG INHALER IH SCH (21:54)
[2018-02-26] MEDS: SOLU-MEDROL 125 MG IVP SCH (22:23)
[2018-02-27] MEDS: BACTROBAN TP SCH ×3 (01:02→20:59)
[2018-02-27] MEDS: CALMOSEPTINE OINTMENT TP SCH ×3 (01:04→21:00)
[2018-02-27] MEDS: NYSTOP POWDER TP SCH ×3 (01:05→20:59)
[2018-02-27] MEDS ORDERED: HUMULIN R SUBCUT PRN (03:20)
[2018-02-27] MEDS ORDERED: LASIX ONE (05:24)
[2018-02-27] MEDS ORDERED: LASIX TAB PO SCH (06:30)
[2018-02-27] MEDS ORDERED: LASIX IVP SCH (06:30)
[2018-02-27] MEDS: PERCOCET 7.5-325 PO SCH ×3 (07:29→20:50)
[2018-02-27] MEDS ORDERED: LASIX IVP STA (08:13)
[2018-02-27] MEDS: COREG PO SCH ×2 (08:51→16:30)
[2018-02-27] MEDS: SOLU-MEDROL 125 MG IVP SCH ×2 (08:51→20:49)
[2018-02-27] MEDS: ROCEPHIN 1 GM in SODIUM CHLORIDE 50 ML IV SCH (08:51)
[2018-02-27] MEDS: COLACE PO SCH ×2 (08:52→20:51)
[2018-02-27] MEDS: K-DUR PO SCH (08:52)
--- NOTE | 2018-02-27 09:43 | PCM.PROG ---
Attending Provider: ATTENDING PROVIDER: Dr. ALYSSA KHANNA This patient is seen with Tiffany Mills, Nurse Practitioner. DATE OF SERVICE: 02/27/18 SUBJECTIVE: This 72 year old WHITE/ F was hospitalized 02/26/18. The patient is resting comfortably. She has no acute respiratory distress. Chest x-ray revealed CHF. U/A abdominal indicating UTI. REVIEW OF SYSTEMS: CONSTITUTIONAL: No night sweats. No fatigue, malaise, lethargy. No fever or chills. HEENT: Eyes: No visual changes. No eye pain. No eye discharge. ENT: No runny nose. No epistaxis. No sinus pain. No odynophagia. No congestion. RESPIRATORY: No cough, no congestion. No hemoptysis. Shortness of breath. CARDIOVASCULAR: No angina symptoms. No CHF symptoms. No atypical chest pain for CAD. No palpitations. No orthopnea.. GASTROINTESTINAL: No abdominal pain. No nausea or vomiting. No diarrhea or constipation. No hematemesis. No hematochezia. GENITOURINARY: No urgency. No frequency. No dysuria. No hematuria. No obstructive symptoms. No discharge. No pain. No significant abnormal bleeding. MUSCULOSKELETAL: No musculoskeletal pain; no joint swelling. Weakness. Right sides weakness due to previous CVA. NEUROLOGICAL: Awake, alert, oriented to time, place and person. No headache. No neck pain. No syncope. No seizures. No dizziness. PSYCHIATRIC: Not anxious. No depression. No suicidal thoughts. No homicidal thoughts. SKIN: No rash. No lesions. No wounds. Bruises to right arm. ENDOCRINE: No unexplained weight loss. No weight gain. HEMATOLOGIC/LYMPHATIC: No anemia. No purpura. No petechiae. No prolonged or excessive bleeding. No palpable lymph nodes. PHYSICAL EXAMINATION: GENERAL: The patient is awake, alert and oriented, lying in bed in no distress. VITAL SIGNS: Temperature 97.4 F, Pulse 86, Respiratory Rate 24, BP 91/68, Pulse Ox 95% HEENT: Head normocephalic, atraumatic. Eyes: Extraocular muscles are intact. Pupils are equal, round and reactive to light and accommodation. Ears: No lesions. Nose appeared normal. Throat: No exudate or erythema. NECK: Supple. No JVD, no carotid bruit. No lymphadenopathy or thyromegaly. LUNGS: Clear to auscultation. Percussion note normal. Chest symmetrical. Severe diminished breath sounds with bilateral rales. HEART: S1, S2, no S3. No murmurs. No cyanosis or clubbing. No ascites. Pulses: Dorsalis pedis and posterior tibial pulses +1 to +2 both sides. ABDOMEN: Soft. Non-tender. Bowel sounds active. No CVA tenderness. No mass felt. EXTREMITIES: +2 edema right upper extremity. Full range of motion of all extremities, equal. NEUROLOGIC: No focal deficit. Cranial nerves II through XII are grossly intact. No headache, no double vision or headache. SKIN: Not dry. Intact. Turgor-normal. LYMPHATIC: No palpable lymph nodes/no lymphedema. MUSCULOSKELETAL: Normal joints with no swelling. Muscle tone is normal. LAB REVIEW: 02/27/18 05:10 02/27/18 05:10 02/27/18 05:10: Sodium 134.8, Potassium 3.87, Chloride 103.3, Carbon Dioxide 25.9, Anion Gap 9.47, BUN 20.9 H, Creatinine 0.69, Estimated GFR (MDRD) 83.00, BUN/Creatinine Ratio 30.28, Glucose 201.4 H, Calcium 7.92 L, Total Bilirubin 1.79 H, AST 19.0, ALT 15.8, Alkaline Phosphatase 50.0 L, Total Protein 5.57 L, Albumin 2.93 L, Globulin 2.64, Albumin/Globulin Ratio 1.10 02/27/18 05:10: PT 13.5 H, INR 1.36 02/27/18 05:10: WBC 4.33 L, RBC 4.11 L, Hgb 11.0 L, Hct 36.5 L, MCV 88.8, MCH 26.8 L, MCHC 30.1 L, RDW Coeff of Chantel 23.1 H, Plt Count 229, Immature Gran % ( Auto) 0.5, Neut % (Auto) 87.9, Lymph % (Auto) 9.5 L, [place] % (Auto) 1.4, Eos % ( Auto) 0.5, Baso % (Auto) 0.2, Immature Gran # (Auto) 0.0, Neut # (Auto) 3.8, Lymph # (Auto) 0.4 L, [place] # (Auto) 0.1 L, Eos # (Auto) 0.0, Baso # (Auto) 0.0, Anisocytosis 1+, Acanthocytes (Spur) 1+ 02/26/18 16:45: Influ A Molecular Assay Negative by naat, Influ B Molecular Assay Negative by naat 02/26/18 16:23: PT 12.9 H, INR 1.30, APTT 24.1 02/26/18 16:23: Lactic Acid 1.69 02/26/18 16:23: Procalcitonin 0.06 02/26/18 16:23: Sodium 136.5, Potassium 3.52, Chloride 101.9, Carbon Dioxide 29.2, Anion Gap 8.92, BUN 22.5 H, Creatinine 0.97, Estimated GFR (MDRD) 56.00, BUN/Creatinine Ratio 23.19, Glucose 161.7 H, Uric Acid 10.65 H, Calcium 8.04 L, Magnesium 1.82, Total Bilirubin 1.74 H, AST 20.6, ALT 16.7, Alkaline Phosphatase 50.7 L, Troponin I 0.108, Total Protein 5.71 L, Albumin 3.01 L, Globulin 2.70, Albumin/Globulin Ratio 1.11 02/26/18 16:23: WBC 5.01, RBC 4.07 L, Hgb 11.1 L, Hct 36.4 L, MCV 89.4, MCH 27.3 , MCHC 30.5 L, RDW Coeff of Chantel 23.0 H, Plt Count 256, Immature Gran % (Auto) 0.4, Neut % (Auto) 76.4, Lymph % (Auto) 12.6, [place] % (Auto) 6.6, Eos % (Auto) 3.6, Baso % (Auto) 0.4, Immature Gran # (Auto) 0.0, Neut # (Auto) 3.8, Lymph # ( Auto) 0.6, [place] # (Auto) 0.3 L, Eos # (Auto) 0.2, Baso # (Auto) 0.0, Plt Morphology Comment Normal, Anisocytosis 1+, ESR 12 02/26/18 16:10: Urine Color Yellow, Urine Clarity Cloudy, Urine pH 5.0, Ur Specific [address] 1.020, Urine Protein Negative, Urine Glucose (UA) Negative, Urine Ketones Negative, Urine Blood 2+, Urine Nitrite Negative, Urine Bilirubin Negative, Urine Urobilinogen 4.0, Ur Leukocyte Esterase 2+, Urine Microscopic RBC 0-2, Urine Microscopic WBC 2-5, Ur Squamous Epith Cells 5-10, Urine Bacteria 3+, Urine Yeast 2+ 02/26/18 16:04: Puncture Site Lr, O2 Saturation 98.0, ABG pH 7.42, ABG pCO2 37.3 , ABG pO2 105.0 H, ABG HCO3 24.2, ABG Total CO2 25, ABG Base Excess 0, Eliel Test +, O2 Delivery Device Nc, Oxygen Liter Flow 2.00 ASSESSMENT: Please see below. 1. Acute CHF, ejection fraction previously 25-30% 2. UTI, culture pending 3. History of CVA PLAN: 1. Decrease iv fluids from 75mls to 50mls 2. BNP 3. 40mg IV Lasix Plan and coordination of the patient's care discussed in the presence of Wellness Manager and nurse. SCRIBED BY: Osiris ALVAREZist scribed while in presence of service performed by Dr. Khanna/Tiffany Mills APRN on 02/27/18 ([id number])
[2018-02-27] MEDS: PROTONIX PO SCH (10:07)
[2018-02-27] MEDS: SYMBICORT 160-4.5 MCG INHALER IH SCH ×2 (10:07→20:49)
[2018-02-27] MEDS: SODIUM CHLORIDE 1,000 ML IV SCH (10:08)
[2018-02-27] MEDS: HUMULIN R SUBCUT PRN ×3 (11:14→21:00)
[2018-02-27] MEDS: ELAVIL PO SCH (20:51)
[2018-02-27] MEDS: PLAVIX PO SCH (20:51)
[2018-02-28] MEDS: SODIUM CHLORIDE 1,000 ML IV SCH ×2 (06:06→23:55)
[2018-02-28] MEDS: LASIX IVP SCH (06:06)
[2018-02-28] MEDS: HUMULIN R SUBCUT PRN ×3 (06:07→16:36)
[2018-02-28] MEDS: PROTONIX PO SCH (06:07)
[2018-02-28] MEDS: PERCOCET 7.5-325 PO SCH ×2 (09:04→21:51)
[2018-02-28] MEDS: COLACE PO SCH ×2 (09:04→21:51)
[2018-02-28] MEDS: K-DUR PO SCH (09:04)
[2018-02-28] MEDS: ROCEPHIN 1 GM in SODIUM CHLORIDE 50 ML IV SCH (09:04)
[2018-02-28] MEDS: COREG PO SCH ×2 (09:04→16:31)
[2018-02-28] MEDS: SYMBICORT 160-4.5 MCG INHALER IH SCH ×2 (09:05→21:47)
[2018-02-28] MEDS: SOLU-MEDROL 125 MG IVP SCH ×2 (09:05→21:48)
[2018-02-28] MEDS: BACTROBAN TP SCH ×2 (09:14→21:52)
[2018-02-28] MEDS: NYSTOP POWDER TP SCH ×2 (09:15→21:52)
[2018-02-28] MEDS: CALMOSEPTINE OINTMENT TP SCH ×2 (09:15→21:52)
[2018-02-28] MEDS: ELAVIL PO SCH (21:51)
[2018-02-28] MEDS: PLAVIX PO SCH (21:51)
[2018-03-01] MEDS: PROTONIX PO SCH (05:30)
[2018-03-01] MEDS: LASIX IVP SCH (05:32)
[2018-03-01] MEDS: HUMULIN R SUBCUT PRN ×3 (05:34→17:53)
[2018-03-01] MEDS: COLACE PO SCH ×2 (08:32→21:06)
[2018-03-01] MEDS: PERCOCET 7.5-325 PO SCH ×2 (08:32→21:06)
[2018-03-01] MEDS: BACTROBAN TP SCH ×2 (08:33→21:05)
[2018-03-01] MEDS: COREG PO SCH ×2 (08:33→16:31)
[2018-03-01] MEDS: K-DUR PO SCH (08:33)
[2018-03-01] MEDS: CALMOSEPTINE OINTMENT TP SCH ×2 (08:34→21:05)
[2018-03-01] MEDS: NYSTOP POWDER TP SCH ×2 (08:34→21:06)
[2018-03-01] MEDS: SYMBICORT 160-4.5 MCG INHALER IH SCH ×2 (08:35→21:07)
[2018-03-01] MEDS: PREDNISONE PO SCH ×2 (08:37→16:31)
--- NOTE | 2018-03-01 09:01 | PCM.PROG ---
Attending Provider: ATTENDING PROVIDER: Dr. ALYSSA KHANNA This patient is seen with Tiffany Mills, Nurse Practitioner. DATE OF SERVICE: 03/01/18 SUBJECTIVE: This 72 year old WHITE/ F was hospitalized 02/26/18. The patient is resting comfortably. The patient's son here yesterday and changed code statue however she is able to make own decisions. Appetite it is good. Repeat chest x- ray today. REVIEW OF SYSTEMS: CONSTITUTIONAL: No night sweats. No fatigue, malaise, lethargy. No fever or chills. Weakness. HEENT: Eyes: No visual changes. No eye pain. No eye discharge. ENT: No runny nose. No epistaxis. No sinus pain. No odynophagia. No congestion. RESPIRATORY: Cough, no congestion. No hemoptysis. No shortness of breath. CARDIOVASCULAR: No angina symptoms. No CHF symptoms. No atypical chest pain for CAD. No palpitations. No orthopnea.. GASTROINTESTINAL: No abdominal pain. No nausea or vomiting. No diarrhea or constipation. No hematemesis. No hematochezia. GENITOURINARY: No urgency. No frequency. No dysuria. No hematuria. No obstructive symptoms. No discharge. No pain. No significant abnormal bleeding. MUSCULOSKELETAL: No musculoskeletal pain; no joint swelling. NEUROLOGICAL: Awake, alert, oriented to time, place and person. No headache. No neck pain. No syncope. No seizures. No dizziness. PSYCHIATRIC: Not anxious. No depression. No suicidal thoughts. No homicidal thoughts. SKIN: No rash. No lesions. No wounds. ENDOCRINE: No unexplained weight loss. No weight gain. HEMATOLOGIC/LYMPHATIC: No anemia. No purpura. No petechiae. No prolonged or excessive bleeding. No palpable lymph nodes. PHYSICAL EXAMINATION: GENERAL: The patient is awake, alert and oriented, lying/sitting in bed in no distress. VITAL SIGNS: Temperature 97.2 F, Pulse 86, Respiratory Rate 24, BP 92/70, Pulse Ox 99% HEENT: Head normocephalic, atraumatic. Eyes: Extraocular muscles are intact. Pupils are equal, round and reactive to light and accommodation. Ears: No lesions. Nose appeared normal. Throat: No exudate or erythema. NECK: Supple. No JVD, no carotid bruit. No lymphadenopathy or thyromegaly. LUNGS: Diminished breath sounds bilaterally. Clear to auscultation. Percussion note normal. Chest symmetrical. HEART: S1, S2, no S3. No murmurs. No cyanosis or clubbing. No ascites. Pulses: Dorsalis pedis and posterior tibial pulses +1 to +2 both sides. ABDOMEN: Soft. Non-tender. Bowel sounds active. No CVA tenderness. No mass felt. EXTREMITIES: 1+ bilateral leg edema and right upper extremity edema. Full range of motion of all extremities, equal. NEUROLOGIC: No focal deficit. Cranial nerves II through XII are grossly intact. No headache, no double vision or headache. SKIN: Not dry. Intact. Turgor-normal. LYMPHATIC: No palpable lymph nodes/no lymphedema. MUSCULOSKELETAL: Normal joints with no swelling. Muscle tone is normal. LAB REVIEW: 03/01/18 04:00 03/01/18 04:00 03/01/18 04:00: Sodium 135.5, Potassium 3.72, Chloride 104.7, Carbon Dioxide 24.3, Anion Gap 10.22, BUN 26.6 H, Creatinine 0.63, Estimated GFR (MDRD) 93.00, BUN/Creatinine Ratio 42.22, Glucose 150.0 H, Calcium 7.85 L, Total Bilirubin 1.08, AST 19.2, ALT 15.3, Alkaline Phosphatase 45.5 L, Total Protein 5.66 L, Albumin 2.90 L, Globulin 2.76, Albumin/Globulin Ratio 1.05 03/01/18 04:00: WBC 7.95, RBC 4.07 L, Hgb 10.9 L, Hct 36.6 L, MCV 89.9, MCH 26.8 L, MCHC 29.8 L, RDW Coeff of Chantel 23.3 H, Plt Count 266, Immature Gran % ( Auto) 0.5, Neut % (Auto) 91.0, Lymph % (Auto) 5.4 L, [place] % (Auto) 3.1, Eos % ( Auto) 0.0, Baso % (Auto) 0.0, Immature Gran # (Auto) 0.0, Neut # (Auto) 7.2 H, Lymph # (Auto) 0.4 L, [place] # (Auto) 0.3 L, Eos # (Auto) 0.0, Baso # (Auto) 0.0, Anisocytosis 1+ ASSESSMENT: Please see below. 1. Acute CHF 2. UTI 3. Anemia 4. History of CVA PLAN: 1. Discontinue iv fluids 2. Discontinue Solu-Medrol 3. Prednisone 10mg PO twice a day 4. Discontinue IV Lasix 5. Start Lasix 40mg PO starting tomorrow Plan and coordination of the patient's care discussed in the presence of Music Composer and nurse. SCRIBED BY: Sheila ALVAREZ scribed while in presence of service performed by Dr. Khanna/Tiffany Mills APRN on 03/01/18 ([id number])
[2018-03-01] MEDS: ROCEPHIN 1 GM in SODIUM CHLORIDE 50 ML IV SCH (10:22)
--- NOTE | 2018-03-01 13:02 | PN ---
DATE OF SERVICE: 02/27/18 SUBJECTIVE: The patient was hospitalized with CHF and UTI. She is being treated with antibiotics. She is feeling better. She is wheezing but much less than yesterday. No distress. The patient was seen and examined with the Nurse Practitioner. The condition is improving with IV antibiotics, steroids, IV Lasix. IV fluids have been decreased to 50cc per hour. TIME SPENT: More than 30 minutes. Plan and coordination of the patient's care discussed in the presence of nurse. ANAHI
--- NOTE | 2018-03-01 14:57 | DI ---
EXAM: CHEST FRONTAL VIEW HISTORY: Congestive heart failure. COMPARISON: 02/26/2018 FINDINGS: Cardiomegaly is again noted. Pacemaker unit is stable. There is moderate central vascula r congestion and interstitial edema which appears similar to that previously seen with no definite wo rsening or improvement. No pneumothorax IMPRESSION: Cardiomegaly. There is moderate central infiltrates suggesting pulmonary edema. Correla te for less likely pneumonia.
[2018-03-01] MEDS: PLAVIX PO SCH (21:06)
[2018-03-01] MEDS: ELAVIL PO SCH (21:06)
[2018-03-02] MEDS: HUMULIN R SUBCUT PRN ×4 (05:50→22:30)
[2018-03-02] MEDS: LASIX TAB PO SCH (05:51)
[2018-03-02] MEDS: PROTONIX PO SCH (05:51)
[2018-03-02] MEDS ORDERED: ZAROXOLYN PO STA (08:03)
--- NOTE | 2018-03-02 08:51 | PCM.PROG ---
Attending Provider: ATTENDING PROVIDER: Dr. ALYSSA KHANNA This patient is seen with Tiffany Mills, Nurse Practitioner. DATE OF SERVICE: 03/02/18 SUBJECTIVE: This 72 year old WHITE/ F was hospitalized 02/26/18. The patient is resting comfortably. Sats are in the upper 90's but in no distress. Son has made patient full code and would like to find senior care in [place] closer to him and his sister. REVIEW OF SYSTEMS: CONSTITUTIONAL: No night sweats. No fatigue, malaise, lethargy. No fever or chills. HEENT: Eyes: No visual changes. No eye pain. No eye discharge. ENT: No runny nose. No epistaxis. No sinus pain. No odynophagia. No congestion. RESPIRATORY: Cough, no congestion. No hemoptysis. No shortness of breath. CARDIOVASCULAR: No angina symptoms. No CHF symptoms. No atypical chest pain for CAD. No palpitations. No orthopnea.. GASTROINTESTINAL: No abdominal pain. No nausea or vomiting. No diarrhea or constipation. No hematemesis. No hematochezia. GENITOURINARY: No urgency. No frequency. No dysuria. No hematuria. No obstructive symptoms. No discharge. No pain. No significant abnormal bleeding. MUSCULOSKELETAL: No musculoskeletal pain; no joint swelling. Weakness. NEUROLOGICAL: Awake, alert, oriented to time, place and person. No headache. No neck pain. No syncope. No seizures. No dizziness. PSYCHIATRIC: Not anxious. No depression. No suicidal thoughts. No homicidal thoughts. SKIN: No rash. No lesions. No wounds. ENDOCRINE: No unexplained weight loss. No weight gain. HEMATOLOGIC/LYMPHATIC: No anemia. No purpura. No petechiae. No prolonged or excessive bleeding. No palpable lymph nodes. PHYSICAL EXAMINATION: GENERAL: The patient is awake, alert and oriented, lying in bed in no distress. VITAL SIGNS: Temperature 97.9 F, Pulse 87, Respiratory Rate 22, BP 104/58, Pulse Ox 97% HEENT: Head normocephalic, atraumatic. Eyes: Extraocular muscles are intact. Pupils are equal, round and reactive to light and accommodation. Ears: No lesions. Nose appeared normal. Throat: No exudate or erythema. NECK: Supple. No JVD, no carotid bruit. No lymphadenopathy or thyromegaly. LUNGS: Diminished breath sounds. Clear to auscultation. Percussion note normal. Chest symmetrical. HEART: S1, S2, no S3. No murmurs. No cyanosis or clubbing. No ascites. Pulses: Dorsalis pedis and posterior tibial pulses +1 to +2 both sides. ABDOMEN: Soft. Non-tender. Bowel sounds active. No CVA tenderness. No mass felt. EXTREMITIES: Trace to +1 bilateral lower extremity edema. Full range of motion of all extremities, equal. NEUROLOGIC: No focal deficit. Cranial nerves II through XII are grossly intact. No headache, no double vision or headache. SKIN: Not dry. Intact. Turgor-normal. LYMPHATIC: No palpable lymph nodes/no lymphedema. MUSCULOSKELETAL: Normal joints with no swelling. Muscle tone is normal. LAB REVIEW: 03/02/18 04:30 03/02/18 04:30 03/02/18 04:30: Sodium 137.5, Potassium 3.74, Chloride 104.2, Carbon Dioxide 29.1, Anion Gap 7.94, BUN 27.3 H, Creatinine 0.74, Estimated GFR (MDRD) 77.00, BUN/Creatinine Ratio 36.89, Glucose 143.4 H, Calcium 8.38 L, Total Bilirubin 1.14, AST 29.7, ALT 17.6, Alkaline Phosphatase 59.5, Total Protein 5.80 L, Albumin 3.08 L, Globulin 2.72, Albumin/Globulin Ratio 1.13 03/02/18 04:30: WBC 6.88, RBC 4.25, Hgb 11.3 L, Hct 37.9, MCV 89.2, MCH 26.6 L, MCHC 29.8 L, RDW Coeff of Chantel 23.4 H, Plt Count 262, Immature Gran % (Auto) 0.6 , Neut % (Auto) 81.1, Lymph % (Auto) 8.0 L, Ada % (Auto) 9.7, Eos % (Auto) 0.6 , Baso % (Auto) 0.0, Immature Gran # (Auto) 0.0, Neut # (Auto) 5.6, Lymph # ( Auto) 0.6, Ada # (Auto) 0.7, Eos # (Auto) 0.0, Baso # (Auto) 0.0, Anisocytosis 1+ ASSESSMENT: Please see below. 1. Acute CHF 2. UTI 3. Anemia 4. History of CVA PLAN: 1. Anticipate discharge to senior care 2. Zaroxolyn PO one time today 3. Urinalysis showed probably contamination so no need for further antibiotic treatment 4. CHF management discussed in detail 5. Daily weights. Plan and coordination of the patient's care discussed in the presence of Diffusion Furnace Operator and nurse. SCRIBED BY: EMELINA ROBERT Personnel Monitor scribed while in presence of service performed by Dr. Khanna/Tiffany Mills APRN on 03/02/18 ([id number])
[2018-03-02] MEDS: SYMBICORT 160-4.5 MCG INHALER IH SCH ×2 (08:53→20:33)
[2018-03-02] MEDS: PERCOCET 7.5-325 PO SCH ×2 (08:54→20:33)
[2018-03-02] MEDS: COLACE PO SCH ×2 (08:54→20:34)
[2018-03-02] MEDS: PREDNISONE PO SCH ×2 (08:55→16:35)
[2018-03-02] MEDS: COREG PO SCH ×2 (08:55→16:35)
[2018-03-02] MEDS: K-DUR PO SCH (08:55)
[2018-03-02] MEDS: BACTROBAN TP SCH ×2 (08:55→20:32)
[2018-03-02] MEDS: CALMOSEPTINE OINTMENT TP SCH ×2 (08:55→20:32)
[2018-03-02] MEDS: NYSTOP POWDER TP SCH ×2 (08:56→20:33)
[2018-03-02] MEDS: ROCEPHIN 1 GM in SODIUM CHLORIDE 50 ML IV SCH (09:33)
--- NOTE | 2018-03-02 10:29 | HP ---
DATE OF SERVICE: 02/26/18 HISTORY OF PRESENT ILLNESS: This 72-year-old white female who is a resident of [facility]. The skilled nursing reported she had been having increasing shortness of breath with 02 sats in the low 90s. She had a recent CVA. PAST MEDICAL HISTORY: CHF with ejection fraction 25 to 30% Diabetes mellitus type 2 Dyslipidemia Coronary artery disease Hypertension COPD History of CVA with right-sided weakness Obesity Leg edema PAST SURGICAL HISTORY: Pacemaker/defibrillator 2014 Total right hip replacement 2005 REVIEW OF SYSTEMS: CONSTITUTIONAL: No night sweats. No fatigue, malaise, lethargy. No fever or chills. HEENT: Eyes: No visual changes. No eye pain. No eye discharge. ENT: No runny nose. No epistaxis. No sinus pain. No sore throat. No odynophagia. No ear pain. No congestion. RESPIRATORY: No cough, no congestion. No hemoptysis. Positive for shortness of breath. CARDIOVASCULAR: No angina symptoms. No CHF symptoms. No atypical chest pain for CAD. No palpitations. No PND. No orthopnea. GASTROINTESTINAL: No abdominal pain. No nausea or vomiting. No diarrhea or constipation. No hematemesis. No hematochezia. GENITOURINARY: No urgency. No frequency. No dysuria. No hematuria. No obstructive symptoms. No discharge. No pain. No significant abnormal bleeding. MUSCULOSKELETAL: Right-sided weakness. NEUROLOGICAL: No headache. No neck pain. No syncope. No seizures. No dizziness. PSYCHIATRIC: Not anxious. No depression. No suicidal thoughts. No homicidal thoughts. SKIN: No rash. No lesions. No wounds. ENDOCRINE: No unexplained weight loss. No weight gain. HEMATOLOGIC/LYMPHATIC: No anemia. No purpura. No petechiae. No prolonged or excessive bleeding. No palpable lymph nodes. PERSONAL/FAMILY/SOCIAL HISTORY: She is not ; former smoker; no alcohol or ilicit drug use. Currently resides at [facility]. MEDICATIONS: (HOME) Symbicort 160-4.5 mcg inhaler two puff IH b.i.d. Protonix 40 mg p.o. daily Klor-Con 20 mEq Furosemide 20 mg p.o. b.i.d. a.c. Ipratropium/Albuterol 3 mL IH q.4hr p.r.n. Docusate Sodium 100 mg p.o. b.i.d. Dulcolax 10 mg RC once p.r.n. Insulin - Humalog one unit subcut q.i.d. Coreg 3.125 mg p.o. b.i.d. Menthol/Zinc Oxide one application TP q.8hr p.r.n. Amitriptyline 100 mg p.o. bedtime Oxycodone one each p.o. b.i.d. Bactroban one application TP b.i.d. Clopidogrel 75mg p.o. bedtime ALLERGIES: ASPIRIN, PREDNISONE, ZOLPIDEM TARTRATE PHYSICAL EXAMINATION: HEENT: Head normocephalic, atraumatic. Eyes: Extraocular muscles are intact. Pupils are equal, round and reactive to light and accommodation. Ears: No lesions. Nose appeared normal. Throat: No exudate or erythema. NECK: Supple. No JVD, no carotid bruit. No lymphadenopathy or thyromegaly. LUNGS: Clear to auscultation. Percussion note normal. Chest symmetrical. HEART: S1, S2, no S3. No murmurs. No cyanosis or clubbing. No ascites. Pulses: Dorsalis pedis and posterior tibial pulses +1 to +2 bilaterally. ABDOMEN: Soft. Nontender. Bowel sounds active. No CVA tenderness. No mass felt. EXTREMITIES: No edema. Full range of motion of all extremities, equal. NEUROLOGIC: No focal deficit. Cranial nerves II through XII are grossly intact. No headache, no double vision or headache. SKIN: Not dry. Intact. Turgor - normal. LYMPHATIC: No palpable lymph nodes/no lymphedema. MUSCULOSKELETAL: Normal joints with no swelling. Muscle tone is normal. Chest x-ray shows bilateral pleural effusions with cardiomegaly which is the cardiomegaly is stable; pleural effusions are new. White count 5.0, hemoglobin 11.1, hematocrit 36.4, platelets 256. Sodium 136, potassium 3.5, BUN 22, creatinine 0.97, glucose 161. ABGs on 2L 02 sat 98, pH 7.4, pc02 37, p02 105, bicarb 24.2, total c02 25. Urine shows 2+ yeast, 3+ bacteria, 2+ leuks, 2+ blood. Uric acid 10.6, AST 28, ALT 16. ASSESSMENT: 1. ACUTE CHF 2. CARDIOMEGALY, EJECTION FRACTION 25 TO 30% 3. ACUTE URINARY TRACT INFECTION, CULTURE PENDING PLAN: 1. We will admit. 2. Routine telemetry orders. 3. CBC/CMP daily. 4. 40 mg Lasix IV daily. 5. Urine for culture and sensitivity. 6. Slow IV fluids at 50 cc/hr, 7. Continue other home medications. 8. Previous echo was done a few weeks ago. 9. Start Solu-Medrol 125 mg IV q.12hr. 10. Sliding scale for insulin. 11. Low sodium diet. 12. Keep legs elevated. 13. Oxygen at 1 to 2L as needed. 14. Will follow closely. TIME SPENT: More than 70 minutes. MTDD
--- NOTE | 2018-03-02 11:33 | PN ---
DATE OF SERVICE: 02/28/18 SUBJECTIVE: 72 year old white female hospitalized with CHF type of symptoms and upper respiratory tract infection with possibility of UTI. The patient is being treated with IV Lasix, steroids, Antibiotics. The patient's condition has improved to the point where she does not have any orthopnea, very mild cough if at all. She is breathing better. Appetite is improved and her mental status has improved alot. She is oriented to time, place and person. The patient is surrounded by alot of family members like sister and son, Stephen who is the power of regulatory attorney for health. All very upset because the patient had signed DNR. The patient had signed DNR when she was oriented to time, place and person but the family insisted and talked to the patient and patient went along and changed status to full code. REVIEW OF SYSTEMS: CONSTITUTIONAL: No night sweats. No fatigue, malaise, lethargy. No fever or chills. HEENT: Eyes: No visual changes. No eye pain. No eye discharge. ENT: No runny nose. No epistaxis. No sinus pain. No sore throat. No odynophagia. No congestion. RESPIRATORY: Mild cough, no congestion. No hemoptysis. No shortness of breath. CARDIOVASCULAR: No angina symptoms. No CHF symptoms. No atypical chest pain for CAD. No palpitations. No orthopnea. GASTROINTESTINAL: No abdominal pain. No nausea or vomiting. No diarrhea or constipation. No hematemesis. No hematochezia. GENITOURINARY: No urgency. No frequency. No dysuria. No hematuria. No obstructive symptoms. No discharge. No pain. No significant abnormal bleeding. MUSCULOSKELETAL: No musculoskeletal pain; no joint swelling. NEUROLOGICAL: No headache. No neck pain. No syncope. No seizures. No dizziness. PSYCHIATRIC: Not anxious. No depression. No suicidal thoughts. No homicidal thoughts. SKIN: No rash. No lesions. No wounds. ENDOCRINE: No unexplained weight loss. No weight gain. HEMATOLOGIC/LYMPHATIC: No anemia. No purpura. No petechiae. No prolonged or excessive bleeding. No palpable lymph nodes. PHYSICAL EXAMINATION: VITAL SIGNS: Temperature 97.4, pulse 80, respiratory rate 24, blood pressure 100/60 and pulse ox 98%. HEENT: Head normocephalic, atraumatic. Eyes: Extraocular muscles are intact. Pupils are equal, round and reactive to light and accommodation. Ears: No lesions. Nose appeared normal. Throat: No exudate or erythema. NECK: Supple. No JVD, no carotid bruit. No lymphadenopathy or thyromegaly. LUNGS: Decreased breath sounds but good entry. Percussion note normal. Chest symmetrical. HEART: S1, S2, no S3. Soft systolic murmurs. No cyanosis or clubbing. No ascites. Pulses: Dorsalis pedis and posterior tibial pulses +1 to +2 both sides. ABDOMEN: Soft. Nontender. Bowel sounds active. No CVA tenderness. No mass felt. EXTREMITIES: No edema. Full range of motion of all extremities, equal. NEUROLOGIC: No focal deficit. Cranial nerves II through XII are grossly intact. No headache, no double vision or headache. SKIN: Not dry. Intact. Turgor - normal. LYMPHATIC: No palpable lymph nodes/no lymphedema. MUSCULOSKELETAL: Normal joints with no swelling. Muscle tone is normal. LABS: Hgb 10.6, hct 35, WBC 6,000 normal differential, creatinine 1.7, BUN 21, potassium 3.4, glucose 178. ASSESSMENT: 1. CHF seems to have resolved 2. Acute bronchitis under control 3. TIA probably under control 4. The patient has History of CVA 5. Dilated cardiomyopathy with ischemic cardiomyopathy with poor ejection fraction 6. Calcific aortic stenosis, mild to moderate 7. Diabetes Mellitus 8. Renal failure PLAN: 1. Talk to the family members, the patient's son and sister both live in [place] and they would like the patient to be transferred to one of the [facility]. The patient is resident of [place] along with the brothers. The patient would like to be transferred. 2. Continue treatment for congestive heart failure 3. Continue antibiotic/steroids CONDITION: Stable. PROGNOSIS: Poor I explained to the family members all the diagnosis like poor ejection fraction with ischemic cardiomyopathy, pacemaker, chronic lung disease, diabetes mellitus also calcific aortic stenosis which is mild to moderate, history of renal failure, history of CVA. Some of the medical conditions the sister and the son where not aware of it which is not unusually occurring. Explained to them that with all this diagnosis the patient is morbidly obese with BMI of 42. The patient says that she loves to eat and she will eat whatever she wants to. The patient is noncompliant also. TIME SPENT: More than 30 minutes. Plan and coordination of the patient's care discussed in the presence of nurse. ANAHI
--- NOTE | 2018-03-02 11:39 | PN ---
DATE OF SERVICE: 03/01/18 SUBJECTIVE: The patient was seen and examined with the Nurse Practitioner. The patient is going to [facility] tomorrow. She wants to the go to the [facility] and the family is happy with it. She is feeling a lot better. No PND, No orthopnea and cough is much less. We will discontinue IV fluids, discontinue Solu-Cortef. We will put her Prednisone. CHF is under control and her prognosis is poor considering her multiple medical problems. We will do echo before discharge. TIME SPENT: More than 30 minutes. Plan and coordination of the patient's care discussed in the presence of nurse. ANAHI
[2018-03-02] MEDS: PLAVIX PO SCH (20:33)
[2018-03-02] MEDS: ELAVIL PO SCH (20:33)
[2018-03-03] MEDS: LASIX TAB PO SCH (06:21)
[2018-03-03] MEDS: PROTONIX PO SCH (06:21)
[2018-03-03] MEDS: HUMULIN R SUBCUT PRN (06:51)
[2018-03-03] MEDS ORDERED: ZAROXOLYN PO STA (07:55)
[2018-03-03] MEDS ORDERED: CARDIZEM PO ONE ×2 (09:21→11:20)
--- NOTE | 2018-03-03 09:23 | PCM.PROG ---
Attending Provider: ATTENDING PROVIDER: Dr. ALYSSA KHANNA This patient is seen with Tiffany Mills, Nurse Practitioner. DATE OF SERVICE: 03/03/18 SUBJECTIVE: This 72 year old WHITE/ F was hospitalized 02/26/18. The patient is resting comfortably. We are still trying to arrange for placement in group home in [place], [place]. The patient had more output yesterday. We will give Zaroxlyn today. The patient had echo done February 03, 2018 which showed 24% ejection fraction. The patient is likely in refractory CHF due to poor cardiac output. REVIEW OF SYSTEMS: CONSTITUTIONAL: No night sweats. No fatigue, malaise, lethargy. No fever or chills. HEENT: Eyes: No visual changes. No eye pain. No eye discharge. ENT: No runny nose. No epistaxis. No sinus pain. No odynophagia. No congestion. RESPIRATORY: No cough, no congestion. No hemoptysis. Shortness of breath. CARDIOVASCULAR: No angina symptoms. No CHF symptoms. No atypical chest pain for CAD. No palpitations. No orthopnea.. GASTROINTESTINAL: No abdominal pain. No nausea or vomiting. No diarrhea or constipation. No hematemesis. No hematochezia. GENITOURINARY: No urgency. No frequency. No dysuria. No hematuria. No obstructive symptoms. No discharge. No pain. No significant abnormal bleeding. MUSCULOSKELETAL: No musculoskeletal pain; no joint swelling. Weakness. Right sided weakness. NEUROLOGICAL: Awake, alert, oriented to time, place and person. No headache. No neck pain. No syncope. No seizures. No dizziness. PSYCHIATRIC: Not anxious. No depression. No suicidal thoughts. No homicidal thoughts. SKIN: No rash. No lesions. No wounds. Leg edema. ENDOCRINE: No unexplained weight loss. No weight gain. HEMATOLOGIC/LYMPHATIC: No anemia. No purpura. No petechiae. No prolonged or excessive bleeding. No palpable lymph nodes. PHYSICAL EXAMINATION: GENERAL: The patient is awake, alert and oriented, lying in bed in no distress. VITAL SIGNS: Temperature 97.7 F, Pulse 83, Respiratory Rate 18, BP 103/72, Pulse Ox 100% HEENT: Head normocephalic, atraumatic. Eyes: Extraocular muscles are intact. Pupils are equal, round and reactive to light and accommodation. Ears: No lesions. Nose appeared normal. Throat: No exudate or erythema. NECK: Supple. No JVD, no carotid bruit. No lymphadenopathy or thyromegaly. LUNGS: Diminished breath sounds. Clear to auscultation. Percussion note normal. Chest symmetrical. HEART: S1, S2, no S3. No murmurs. No cyanosis or clubbing. No ascites. Pulses: Dorsalis pedis and posterior tibial pulses +1 to +2 both sides. ABDOMEN: Soft. Non-tender. Bowel sounds active. No CVA tenderness. No mass felt. EXTREMITIES:+1 left lower extremity edema. Trace right lower extremity edema. + 1 right upper extremity edema. Full range of motion of all extremities, equal. NEUROLOGIC: No focal deficit. Cranial nerves II through XII are grossly intact. No headache, no double vision or headache. SKIN: Not dry. Intact. Turgor-normal. LYMPHATIC: No palpable lymph nodes/no lymphedema. MUSCULOSKELETAL: Normal joints with no swelling. Muscle tone is normal. LAB REVIEW: 03/03/18 06:15 03/03/18 06:15 03/03/18 06:15: Sodium 134.4 L, Potassium 3.52, Chloride 99.2, Carbon Dioxide 29.6, Anion Gap 9.12, BUN 27.8 H, Creatinine 0.63, Estimated GFR (MDRD) 93.00, BUN/Creatinine Ratio 44.12, Glucose 178.5 H, Calcium 8.03 L, Total Bilirubin 1.10, AST 19.6, ALT 16.9, Alkaline Phosphatase 51.4 L, Total Protein 5.51 L, Albumin 2.95 L, Globulin 2.56, Albumin/Globulin Ratio 1.15 03/03/18 06:15: WBC 6.02, RBC 4.06 L, Hgb 10.8 L, Hct 35.9 L, MCV 88.4, MCH 26.6 L, MCHC 30.1 L, RDW Coeff of Chantel 22.5 H, Plt Count 236, Immature Gran % ( Auto) 1.8, Neut % (Auto) 72.4, Lymph % (Auto) 13.3, Tucker % (Auto) 10.5 H, Eos % (Auto) 1.8, Baso % (Auto) 0.2, Immature Gran # (Auto) 0.1, Neut # (Auto) 4.4, Lymph # (Auto) 0.8, Tucker # (Auto) 0.6, Eos # (Auto) 0.1, Baso # (Auto) 0.0, Anisocytosis 1+ ASSESSMENT: Please see below. 1. Refractory CHF with ejection fraction 24% 2. Chronic respiratory failure 3. COPD 4. CVA with right sided hemiparesis 5. Generalized weakness PLAN: 1. Zaroxlyn 2.5mg today 2. Will try to arrange for group home placement 3. Labs stable 4. Good output yesterday 5. The patient's prognosis is poor but her condition is stable at this time. Plan and coordination of the patient's care discussed in the presence of Painter Ski Edge and nurse. SCRIBED BY: EMELINA ROBERT Aeronautical Engineering Teacher scribed while in presence of service performed by Dr. Khanna/Tiffany Mills APRN on 03/03/18 ([id number])
[2018-03-03] MEDS: ROCEPHIN 1 GM in SODIUM CHLORIDE 50 ML IV SCH (09:44)
[2018-03-03] MEDS: SYMBICORT 160-4.5 MCG INHALER IH SCH (09:47)
[2018-03-03] MEDS: K-DUR PO SCH (09:50)
[2018-03-03] MEDS: COREG PO SCH (09:51)
[2018-03-03] MEDS: PREDNISONE PO SCH (09:52)
[2018-03-03] MEDS: PERCOCET 7.5-325 PO SCH (09:52)
[2018-03-03] MEDS: COLACE PO SCH (09:53)
[2018-03-03] MEDS: CALMOSEPTINE OINTMENT TP SCH (09:54)
[2018-03-03] MEDS: BACTROBAN TP SCH (09:54)
[2018-03-03] MEDS: NYSTOP POWDER TP SCH (09:55)
[2018-03-03] MEDS ORDERED: LANOXIN IVP STA ×2 (11:07→12:00)
[2018-03-03] MEDS ORDERED: CARDIZEM ONE (11:24)
--- NOTE | 2018-03-03 12:51 | DS ---
DATE OF SERVICE: 03/03/18 FINAL DIAGNOSIS: 1. ATRIAL FLUTTER WITH 2:1 WITH RAPID VENTRICULAR RESPONSE 2. ACUTE ON CHRONIC SYSTOLIC/DIASTOLIC CHF WITH LOW EJECTION FRACTION 3. MODERATE AORTIC STENOSIS 4. PACEMAKER PLACEMENT 5. LEFT MCA STROKE WITH RIGHT HEMIPARESIS 6. CHRONIC LUNG DISEASE 7. DIABETES MELLITUS 8. ACUTE BRONCHITIS 9. CHRONIC ANEMIA 10. SEVERE DJD OF THE SPINE DISCHARGE INSTRUCTIONS: The patient is being transferred to [facility]. MEDICATIONS AT TRANSFER: 1. Lasix 40 mg p.o. q.a.m. The patient was given intermittent IV Lasix to one dose of Zaroxolyn was given today. 2. Plavix 75 mg p.o. daily. 3. Elavil 100 mg at bedtime. 4. Symbicort 164.5 two puffs twice a day. 5. Coreg 3.125 mg twice a day. 6. Duoneb q.6 as needed. 7. The patient was on Rocephin 1 gm and changed it to Omnicef 300 mg p.o. twice a day. 8. Sliding scale coverage for hyperglycemia/diabetes. 9. Oxycodone 7.5/325 mg twice a day. 10. Protonix 40 mg q.a.m. 11. K-Dur 20 mEq p.o. daily. 12. Prednisone 10 mg p.o. twice a day. LABS: Hemoglobin 10.8, hematocrit 35, WBC 6,000, normal differential. Creatinine 0.6, BUN 27, potassium 3.5, glucose 178. Chest x-ray done yesterday showed x-ray findings unchanged from admission with vascular congestion. EKG - the patient was in sinus rhythm but this morning around 9:30 a.m. the patient went into atrial flutter with 2:1 with rate of 150/min. DIET INSTRUCTIONS: 1800 CALORIE, 4 GM NA++ DIET. PUREED. NECTAR THICKENED LIQUIDS. ACTIVITY: PT/OT TO EVALUATE AND TREAT, UP FOR MEALS. 02 AT 2l/C CONTINUOUS. SMOKING: N/A DISEASE SPECIFIC EDUCATION: Transfer, patient and family agreeable HOSPITAL COURSE: 72-year-old white female was hospitalized on 02/26/18 with some symptoms of CHF , possibility of UTI. The patient was ruled out to have UTI but she had acute bronchitis on chronic lung disease. She was treated with antibiotics, steroids, nebs treatment. Also, the x-ray of chest showed pulmonary congestion and she had some orthopnea. She was treated with IV Lasix. Her condition improved within 48 hours. She was feeling a lot better. She was alert, oriented to time, place and person but the last couple of days her condition has been stable with continued chronic refractory CHF. The patient was about to be transferred to [facility] per family and the patient desire, the patient went into atrial flutter with 2:1, rate of 150. The patient has been given total of 120 mg p.o. Cardizem along with 0.5 of Lanoxin. Blood pressure is borderline. The systolic fluctuating from 100 to 120. She hasn't shown any sign of decompensation yet. Considering her low ejection fraction, moderate aortic stenosis, she may not be able to tolerate this rate too long. The patient may need further measures to convert her to sinus rhythm and address her other issues related to her cardiovascular and respiratory system. The patient's family was present during this conversation and they have agreed for her to be transferred to [facility] where she was taken care of before in November 2017. Explained to the family all of the problems along with her history of stroke prognosis is poor. Condition stable. TIME SPENT: More than 60 minutes. ANAHI
[2018-03-03] MEDS ORDERED: LOVENOX SUBCUT SCH (13:30)
--- NOTE | 2018-03-03 13:36 | PN ---
DATE OF SERVICE: 03/02/18 SUBJECTIVE: The patient is seen and examined with the nurse practitioner. The patient's condition has improved. She is feeling better. The CHF has resolved. Bronchitis seems to be resolving. The patient is on steroids, nebs, antibiotics. UTI no growth. The patient has poor ejection fraction 25%. I discussed with her referral to oven heater where they can put lifejacket, consider her for defibrillator placement. The patient declined workup in the way of cardiac cath or anything else. The patient says that she has agreed to the full resuscitation because of her family but deep down she doesn't want anything to be done. Regardless, the patient does not have any symptoms of CHF at the present time at rest. She has history of stroke involving left middle meningeal artery with right hemiparesis, ischemic cardiomyopathy with poor ejection fraction, diabetes mellitus, chronic lung disease with evidence of pulmonary hypertension. The patient's prognosis is poor but the condition is stable at the present time. TIME SPENT: More than 30 minutes. Plan and coordination of the patient's care discussed in the presence of nurse. ANAHI
--- NOTE | 2018-03-03 13:40 | PN ---
CODING FOR BILLIN02/26/18 ADMISSION DAY LEVEL 5 02/27/18 INTERMEDIATE 02/28/18 INTERMEDIATE 03/01/18 EXTENSIVE 03/02/18 EXTENSIVE 03/03/18 DISCHARGE MTDD
[2018-03-03 14:06] VITALS: BP 126/72; TEMP 98.2
[2018-03-04] MEDS ORDERED: CARDIZEM PO ONE (09:21)
== END 2018-03-03 14:45 | DRG 689 ==
LOC: ED 15:22 → MEDSURG B 19:38
PROVIDERS: ADMIT Internal Medicine; ATTEND Internal Medicine
DX: N39.0 Urinary tract infection, site not specified (principal); I50.43 Acute on chronic combined systolic (congestive) and diastolic (congestive) heart failure; I48.92 Unspecified atrial flutter; I50.9 Heart failure, unspecified; I35.0 Nonrheumatic aortic (valve) stenosis; I51.7 Cardiomegaly; J06.9 Acute upper respiratory infection, unspecified; E11.9 Type 2 diabetes mellitus without complications; D64.9 Anemia, unspecified; M47.9 Spondylosis, unspecified; J44.9 Chronic obstructive pulmonary disease, unspecified; R06.00 Dyspnea, unspecified; R23.0 Cyanosis; R53.1 Weakness; R05 Cough; R06.01 Orthopnea; R06.2 Wheezing; Z86.73 Personal history of transient ischemic attack (TIA), and cerebral infarction without residual deficits
CPT/HCPCS: 36415; 80053; 81001; 82803; 82962; 83605; 83735; 83880; 84145; 84484; 84550; 85008; 85025; 85610; 85651; 85730; 87040; 87081; 87086; 87502; 87651; 93005; 93010; 96361; 96365; 96375; 99223; 99232; 99233; 99239; 99284

== ENCOUNTER 2018-03-03 14:48 | Outpatient (CLI) | END 2018-03-03 15:08 | disposition short-term general hospital (02) | LOC: AMBL 14:48 | PROVIDERS: ATTEND Internal Medicine | DX: I48.91 Unspecified atrial fibrillation (principal); I50.9 Heart failure, unspecified; N39.0 Urinary tract infection, site not specified; R53.1 Weakness; Z86.73 Personal history of transient ischemic attack (TIA), and cerebral infarction without residual deficits ==